=== PATIENT | male | born 1975 | race Caucasian/White ===

== ENCOUNTER 2021-01-09 23:31 | Emergency (ER) | payer OTHER ==
[~2021-01-09] VITALS: Ht 180.3 cm; Wt 72.6 kg
--- NOTE | 2021-01-09 23:40 | NUR ---
PT BIB [facility] FROM HOME, PT STARTED HE WAS ON HIS WAY TO A [employer] AND GAVE HIMSELF EXTRA INSULIN BUT GOT GERD PRIOR TO EATIN, PT C/O HYPOGLYCEMIA, PARAMEDICS GAVE PT D10. A/O X4, NO SOB OR LABORED BREATHING, AFEBRILE. DENIES CP/PRESSURE.
--- NOTE | 2021-01-09 23:52 | NUR ---
DR. DAVIES AT BEDSIDE, MSE IN PROGRESS.
[2021-01-09] MEDS: IV NORMAL SALINE 1000 ML BAG IV ONE (23:56)
--- NOTE | 2021-01-09 23:57 | NUR ---
LAB AT BEDSIDE.
[2021-01-10 00:05] LABS: HEMATOCRIT 39.6 % (36.7-47.1); MEAN CORPUSCULAR HEMOGLOBIN 34.6 uug (23.8-33.4); MEAN CORPUSCULAR VOLUME 98.3 fL (73.0-96.2); PLATELET COUNT (AUTO) 252 K/uL (152-348)
[2021-01-10] MEDS ORDERED: ONDANSETRON 4 MG/2 ML VIAL ONE ×2 (00:07→02:39)
[2021-01-10] MEDS: ONDANSETRON 4 MG/2 ML VIAL IV ONE ×2 (00:08→02:32)
[2021-01-10 00:15] LABS: POTASSIUM 3.8 mmol/L (3.5-5.1)
[2021-01-10 00:20] LABS: BILIRUBIN,DIRECT 0.1 mg/dL (0.0-0.2); BILIRUBIN,TOTAL 0.4 mg/dL (0.2-1.0); TOTAL PROTEIN, SERUM 7.5 g/dL (6.4-8.2)
[2021-01-10] MEDS: FAMOTIDINE. 20 MG/2 ML VIAL IV ONE (00:38)
[2021-01-10] MEDS ORDERED: FAMOTIDINE. 20 MG/2 ML VIAL IV ONE (00:42)
--- NOTE | 2021-01-10 01:33 | NUR ---
Patient is resting comfortably in bed with eyes closed. Breathing even and unlabored.
[2021-01-10] MEDS: IV D5/ 0.9% NACL 1,000 ML IV ONE (02:00)
[2021-01-10] MEDS ORDERED: DEXTROSE 50% 50 ML DISP.SYRIN ONE (02:00)
[2021-01-10] MEDS: DEXTROSE 50% 50 ML DISP.SYRIN IV ONE (02:00)
[2021-01-10 02:05] LABS: *BILIRUBIN,URIN NEGATIVE (NEGATIVE); *BLOOD, URINE NEGATIVE (NEGATIVE); *CLARITY,URINE CLEAR (CLEAR); *COLOR,URINE YELLOW (YELLOW); *KETONES,URINE NEGATIVE (NEGATIVE); *UROBILINOGEN,URINE 0.2 E.U./dl (NORMAL); LEUKOCYTE ESTERASE ,URINE NEGATIVE (NEGATIVE); NITRITE, URINE NEGATIVE (NEGATIVE); PH,URINE 5.5 (5.0-8.0); UGLUCOSE TRACE (NEGATIVE)
--- NOTE | 2021-01-10 02:21 | NUR ---
Spoke to [facility] and given requested information.
--- NOTE | 2021-01-10 04:12 | NUR ---
[facility] CALLED BACK ACCEPTED TO [facility] TELE BED ROOM: 2337 A CALL BACK: [phone] DR[address] RODRIGUEZ. LAZ ETA [id number]
--- NOTE | 2021-01-10 04:44 | NUR ---
GAVE REPORT TO MARY CHICAS, [facility].
--- NOTE | 2021-01-10 05:19 | NUR ---
PT NOTED TO BE AWAKE, IN BED WATCHING TV. DENIES ANY PAIN/DISCOMFORT. NO N/V.
--- NOTE | 2021-01-10 05:59 | NUR ---
[facility] [place] [address] AT BEDSIDE TO TAKE PT TO [facility].
--- NOTE | 2021-01-10 06:05 | NUR ---
Patient Tranfers to outside Facility Physician: MICHAEL Location: [facility].
== END 2021-01-10 06:06 | disposition short-term general hospital (02) ==
LOC: ER 23:41
DX: E10.649 Type 1 diabetes mellitus with hypoglycemia without coma (principal); T38.3X5A Adverse effect of insulin and oral hypoglycemic [antidiabetic] drugs, initial encounter; Z79.4 Long term (current) use of insulin; Y92.89 Other specified places as the place of occurrence of the external cause; R11.2 Nausea with vomiting, unspecified; Z20.822 Contact with and (suspected) exposure to COVID-19
CPT/HCPCS: 36415; 80048; 80076; 81003; 83605; 83690; 84484; 85025; 87426; 93005; 96361; 96365; 96375; 96376; 99285; J2405 ×2; J3490 ×2; J7042; 70030-TC